=== PATIENT | female | born 1990 | race Two or more races ===

== ENCOUNTER 2024-05-16 06:41 | Outpatient (REF) | payer OTHER, SELFPAY ==
--- NOTE | ~2024-05-16 | US_ITS ---
EXAMINATION: US RETROPERITONEAL COMPLETE (RENAL) CLINICAL INFORMATION: Elevated creatinine.. COMPARISON: None available. TECHNIQUE: Real-time imaging of the kidneys and bladder. FINDINGS: RIGHT KIDNEY: 10 x 5 x 5 cm (SAG x AP x TRV). The kidney is normal in size, contour, and echogenicity. Renal cortical thickness is normal. No calculi or focal parenchymal lesions. No hydronephrosis. There is a well-defined 2.4 cm exophytic anechoic lesion in the upper pole without septations or nodular components. There is flow on color Doppler interrogation of the renal hilum. LEFT KIDNEY: 10 x 5 x 6 cm (SAG x AP x TRV). The kidney is normal in size, contour, and echogenicity. Renal cortical thickness is normal. No calculi or focal parenchymal lesions. No hydronephrosis. BLADDER: Fluid-filled Bilateral ureteral jets are demonstrated. Prevoid bladder volume is 332 mL. Postvoid bladder volume is 25 mL. US/US retroperitoneal comp IMPRESSION: 25 cc of residual urine in a post void image. No hydronephrosis. 2.4 cm simple cyst, right kidney.. Electronically signed by: Soy Angeles MD 05/16/2024 02:34 PM EST
== END 2024-05-16 06:42 | disposition home or self-care (01) ==
LOC: HO.UMASIMG 06:41
PROVIDERS: Visit Provider Family Medicine
DX: R94.4 Abnormal results of kidney function studies (principal)
CPT/HCPCS: 76770

== ENCOUNTER → 2024-05-16 13:58 | Outpatient (BNV) | payer OTHER, SELFPAY | PROVIDERS: Visit Provider Radiology Diagnostic Radiology | DX: N28.1 Cyst of kidney, acquired (principal); N39.43 Post-void dribbling | CPT/HCPCS: 76770 ==

== ENCOUNTER 2024-08-28 14:36 | Outpatient (REF) | payer OTHER, SELFPAY ==
--- NOTE | ~2024-08-28 | US_ITS ---
EXAMINATION: US KIDNEY BILATERAL HISTORY: cyst of kidney TECHNIQUE: Real-time grayscale ultrasound imaging of the kidneys was performed and images were reviewed. COMPARISON: Comparison is made with the prior examination dated 05/16/2024. FINDINGS: Right kidney: The right kidney measures 9.4 x 4.3 x 5.3 cm. Renal parenchymal echotexture and thickness are normal. Again seen is an upper pole cyst measuring 2.3 x 1.9 x 2.2 cm. There is no hydronephrosis or renal calculi. Left Kidney: The left kidney measures 10.0 x 4.7 x 5.4 cm. Renal parenchymal echotexture and thickness are normal. There are no masses. There is no hydronephrosis or renal calculi. US/US renal BI IMPRESSION: Stable 2.3 x 1.9 x 2.2 cm right upper pole renal cyst. Otherwise unremarkable renal ultrasound. Electronically signed by: Haris Gil MD 08/29/2024 07:38 AM EDT
--- OUTSIDE RECORDS SUMMARY | 2024-08-28 15:52 | XMS_ITS | Encounter Summary ---
Author Organization [facility] Address [address] [facility] [address] [place] [address] Phone Care Team Providers Care Inventory Associate Name Role Phone Darline Carrera MD Primary Care Provide r Encounter Details Date Type Department Care Team (Late st Contact Info) Description 03/10/2022 Procedure Pass Non-Invasive Cardiology [address] [place] [address] Social History Tobacco Use Types Packs/Day Years Used Date Smoking Tobacco: Never Alcohol Use Standard Drinks/Week Comments Yes 1 (1 standard drink = 0.6 oz pur e alcohol) Sex and Gender Information Value Date Recorded Sex Assigned at Not on file Gender Identity Not on file Sexual Orientation Not on file documented as of this encounter Plan of Treatment Not on file documented as of this encounter Visit Diagnoses Not on filedocumented in this encounter Additional Health Concerns Assessment Noted Time PHQ-2 Depression Total Score: 0 11/12/19 17 8:41 AM EDT documented as of this encounter Care Teams Inventory Associate Relationship Specialty Start Date End Date Darline Carrera MD 2 [facility] [place] [address] [email or web address] PCP - General Internal Medicine 06/08/18 documented as of this encounter Additional Source Comments The information contained in this document represents components of the legal health record. It is not the complete legal health record.[facility]
--- OUTSIDE RECORDS SUMMARY | 2024-08-28 15:52 | XMS_ITS | Encounter Summary ---
Author Organization [facility] Address [address] [place] [address] Phone Care Team Providers Care Senior Construction Project Manager Name Role Phone Gwendolyn Perez DO Primary Care Provider [phone] Encounter Details Date Type Department Care Team (Late st Contact Info) Description 05/31/2024 Documentation Only [facility] [address] [place] [address] Natanael HealyORICK, [place] [address] [place] [address] Social History Tobacco Use Types Packs/Day Years Used Date Smoking Tobacco: Never Assessed Comments Unknown Sex and Gender Information Value Date Recorded Sex Assigned at Not on file Legal Sex Female 11:14 AM EST Gender Identity Not on file Sexual Orientation Not on file documented as of this encounter Plan of Treatment Upcoming Encounters Date Type Department Care Team (Late st Contact Info) Description 07/14/2025 1:45 PM EDT Office Visit [facility] [place] [address] [place] [phone] Ozzy Valles MD [address] [place] [address] [place] [address] documented as of this encounter Visit Diagnoses Not on filedocumented in this encounter Care Teams Senior Construction Project Manager Relationship Specialty Start Date End Date Gwendolyn Perez DO [address] [place] [phone] PCP - General Family Medicine 05/29/24 documented as of this encounter
--- OUTSIDE RECORDS SUMMARY | 2024-08-28 15:52 | XMS_ITS | Encounter Summary ---
Author Organization [facility] Address [address] [place] [address] Phone Care Team Providers Care Educational Programming Director Name Role Phone Gwendolyn Perez DO Primary Care Provider [phone] Encounter Details Date Type Department Care Team (Late st Contact Info) Description 05/29/2024 Documentation Only [facility] [address] [place] [address] Natanael [place], [place] [address] [place] [address] Social History Tobacco Use Types [...] Visit [facility] [place] [address] Milly [address] [place] [phone] Ozzy Valles MD [address] [place] [address] [place] [address] documented as of this encounter Visit Diagnoses Not on filedocumented in this encounter Care Teams Educational Programming Director Relationship Specialty Start Date End Date Gwendolyn Perez DO [address] [place] [phone] PCP - General Family Medicine 05/29/24 documented as of this encounter
--- OUTSIDE RECORDS SUMMARY | 2024-08-28 15:52 | XMS_ITS | Encounter Summary ---
Author Organization [facility] Address [address] [facility] [address] [place] [phone] Phone Care Team Providers Care Office Runner Name Role Phone Darline Carrera MD Primary Care Provide r Encounter Details Date Type Department Care Team (Late st Contact Info) Description 03/10/2022 Transcribe Orders Virtual Department [address] [place] [address] Cheyenne Claudio MD [address] [place] [phone] [email or web address] Palpitations (Primary Dx) Social History Tobacco Use Types Packs/Day Years [...] on file documented as of this encounter Results * Holter Monitor 24 Hours (04/06/2022 4:48 PM EST) Total Beats 98,270 [facility] Ventricular Ectopy Total Beats 6 [facility] Ventricular Ectopy Single Beats 6 [facility] Ventricular Pair 0 [facility] Ventricular Runs 0 [facility] Supraventricular Total Beats 1,643 [facility] Supraventricular Ectopic Single Beats 1,643 [facility] Supraventricular Runs 0 [facility] Mean Heart Rate 71 BPM [facility] Maximum Heart Rate 115 BPM P [facility] Minimum Heart Rate 51 BPM P [facility] Longest RR 1.531 S [facility] Anatomical Region Laterality Modality Heart Other 04/04/2022 3:10 PM EST 04/06/2022 4:48 PM EST Narrative 04/07/2022 1:09 PM EST Holter monitor report Indication palpitations Findings: The underlying rhythm is sinus rhythm with an average heart rate 71, minimum heart rate 51, maximal heart rate 115. There are very rare isolated PVCs. There are rare isolated premature atrial contractions. Palpitations really did not correlate with any particular abnormality. Conclusion: Normal Holter monitor with some rare premature atrial contractions. Symptoms did not clearly correlate with any particular abnormality. Holter Monitor Main Form Hookup date: 04/04/2022 End date: 04/05/2022 Scan date: 04/06/2022 Analysis time: 24 hr Mean HR: 71 bpm Max HR: at 11:05 EST on 04/05/2022 115 bpm Min HR: at 08:25 EST on 04/05/2022 51 bpm Ventricular ectopic beats - total: 6 Ventricular ectopic beats - singles: 6 Ventricular ectopic beats - pairs: 0 Ventricular ectopic beats - runs: 0 Supraventricular ectopic beats - total: 1643 Supraventricular ectopic beats - singles: 1643 Supraventricular ectopic beats - runs: 0 Longest R-R interval at 05:55 EST on .531 sec Cheyenne Claudio MD [facility] documented in this encounter Visit Diagnoses Diagnosis Palpitations- Primary Palpitations documented in this encounter Additional Health Concerns Assessment Noted Time PHQ-2 Depression Total Score: 0 11/12/19 17 8:41 AM EDT documented as of this encounter Care Teams Office Runner Relationship Specialty Start Date End Date Darline Carrera MD 2 [facility] [place] [address] [email or web address] PCP - General Internal Medicine 06/08/18 documented as of this encounter Additional Source Comments The information contained in this document represents components of the legal health record. It is not the complete legal health record.[facility]
--- OUTSIDE RECORDS SUMMARY | 2024-08-28 15:52 | XMS_ITS | Clinical Summary ---
Author Organization [facility] r Address 1 [place] [address] Phone Care Team Providers Care Metal Control Coordinator Name Role Phone Unavailable Primary Care Provider Unavailabl e Allergies No known active allergies Social History Tobacco Use Types Packs/Day Years Used Date Smoking Tobacco: Never Housing Answer Date Recorded What is your living situation today? I have a [facility] place to live 10/07/2021 Comments Unknown Sex and Gender Information Value Date Recorded Sex Assigned at Not on file Legal Sex Female 2:29 PM EDT Gender Identity Not on file Sexual Orientation Not on file Last Filed Vital Signs Vital Sign Reading Time Taken Comments Blood Pressure 111/76 10/07/2021 7:16 PM EDT Pulse 96 10/07/2021 7:16 PM EDT Temperature 37.2 ??C (99 ??F) 10/07/2021 2:54 PM EDT Respiratory Rate 18 10/07/2021 7:16 PM EDT Oxygen Saturation 99% 10/07/2021 7:16 PM EDT Inhaled Oxygen Concentration - - Weight 49.9 kg (110 lb) 10/07/2021 2:54 PM EDT Height 154.9 cm (5' 1 ) 10/07/2021 2:54 PM EDT Body Mass Index 20.78 10/07/2021 2:54 PM EDT Plan of Treatment Health Maintenance Due Date Last Done Comments HIV Lifetime Screening 1992 Hepatitis B sAg Lifetime Screening 1992 Hepatitis C Antibody Lifetim e Screening 1992 THRIVE SCREENING 1992 Oral Health Screen 03/29/1993 HEIP Disability Screen 1997 BEHAVIORAL HEALTH SCREEN 2004 Psych Substance Use Screen 2004 Relationship Safety Screening 10/28/2007 DTAP/TDAP VACCINE (1 - Tdap) 10/28/2011 Cervical Cancer Screening 2013 Colposcopy 2013 PAP SMEAR 2013 Pap + HPV 2013 COVID-19 Vaccine ( - 2023-2 5 season) 2023 INFLUENZA VACCINE (#1) 2023 Zoster Vaccine (1 of 2) 2042 HPV VACCINES Aged Out No longer eligi ble based on patient's age to complete this topic IPV VACCINES Aged Out No longer eligi ble based on patient's age to complete this topic MENINGOCOCCAL B Aged Out No longer el igible based on patient's age to complete this topic Pneumonia Vaccine 0-49 Years Aged Out No longer eligible based on patient's age to complete this topic ROTAVIRUS VACCINES Aged Out No longer eligible based on patient's age to complete this topic
--- OUTSIDE RECORDS SUMMARY | 2024-08-28 15:52 | XMS_ITS | Clinical Summary ---
Author Organization [facility] Address [address] [id number] Phone Care Team Providers Care Miter Sawyer Name Role Phone Darline Carrera MD Primary Care Provide r Allergies No known active allergies Medications Medication Sig Dispensed Refills Start Date End Date Status cholecalciferol (VITAMIN D3) 1,000 unit tabletIndications:R outine general medical examination at a health care facility Take 1 tablet (1,000 Units total) by mouth daily. 90 tablet 3 11/11/2016 Active Additional Information Patient not taking.Reported on 06/08/2018 norethindrone-ethin yl estradiol (MICROGESTIN 05/20) 1-0.02 mg per tabletIndications:I rregular menses Take 1 tablet by mouth daily. 1 packet 11 12/28/2016 Active Additional Information Patient not taking.Reported on 06/08/2018 polyethylene glycol (MIRALAX) 17 gram/dose powder Take 17 g by mouth daily. 1 Bottle 01/16/2017 Active Active Problems Problem Noted Date Diagnosed Date Menstrual periods irregular 11/11/2016 Overview (12/28/2016): Always irregular, exc when on OCPs. May be anovulatory, although does not meet criteria for PCOS (no clinical hyperandrog, no polycystic ovaries on US, testost/DHEAS normal). TSH and PRL wnl. Pt not desiring fertility at this time. A1C/lipids wnl. - TVUS does show endometrial polyp, s/p resection with EXPERIENCE SPECIALIST - awaiting path - OCPs thereafter to regulate menses Routine general medical exam ination at a health care facility 11/11/2016 Overview (11/15/2016): Pap: 11/2015, normal in [place] Mammo/colo/dexa: no FHx, not yet Lipids: CHL 167, HDL 61, LDL 82, TG 120 (10/2016) A1C: 5.4% (10/2016) Last physical: done 11/11/16 HIV, GC/CT: neg 10/2016 Vaccines: reports UTD for school, will bring in record Weight: Body mass index is 24.38 kg/(m^2). Diet/ex. Calcium/Vit D: advised daily 1000 IU vitamin D3 BC method: not needed at this time, female partner Immunizations Name Administration Dates Next Due HPV9 11/11/2016 Family History Medical History Relation Comments Hyperlipidemia Father Lung cancer Maternal Grandfather smoker Diabetes Maternal Grandmother Heart attack Maternal Grandmother Heart disease Mother Heart attack Paternal Grandmother Breast cancer Neg Hx Colon cancer Neg Hx Relation Status Comments Father Maternal Grandfather Maternal Grandmother Mother Paternal Grandmother Social History Tobacco Use Types Packs/Day Years Used Date Smoking Tobacco: Never Alcohol Use Standard Drinks/Week Comments Yes 1 (1 standard drink = 0.6 oz pur e alcohol) Education Answer Date Recorded Are you interested in more education? Not on marshall e 08/26/2022 Are you concerned about learning? Not on file 08/26/2022 No 08/26/2022 No 08/26/2022 Digital Access Answer Date Recorded No 09/26/2022 No 09/26/2022 No 09/26/2022 Reliable internet access at home? Not on file 09/26/2022 Device with a working camera? Not on file Sex and Gender Information Value Date Recorded Sex Assigned at Not on file Gender Identity Not on file Sexual Orientation Not on file Last Filed Vital Signs Vital Sign Reading Time Taken Comments Blood Pressure 120/67 06/05/2019 12:54 AM EST Pulse 76 06/05/2019 12:54 AM EST Temperature 36.6 ??C (97.8 ??F) 06/04/2019 8:20 PM ES T Respiratory Rate 16 06/05/2019 12:54 AM EST Oxygen Saturation 99% 06/05/2019 12:54 AM EST Inhaled Oxygen Concentration - - Weight 56.7 kg (125 lb) 06/05/2019 12:54 AM EST Height 170.2 cm (5' 7 ) 06/05/2019 12:54 AM EST Body Mass Index 19.58 06/05/2019 12:54 AM EST Plan of Treatment Health Maintenance Due Date Last Done Comments DEPRESSION SCREENING 11/11/2017 11/11/2016 SMOKING STATUS SCREENING (On ce After 26 Yrs) 2018 PAP SMEAR 12/29/2019 12/28/2016, 12/28/2016 INFLUENZA VACCINE (#1) 2023 COVID-19 VACCINE (2023-2 5 season) 2023 09/13/2020, 08/16/2020 Adult Td,Tdap Booster 02/02/2030 02/03/2020 , 08/15/2018 HEPATITIS C SCREENING Completed 01/04/2017 HIV ONE-TIME SCREENING (18-6 5 YEARS) Completed 01/04/2017 HEPATITIS A VACCINES Aged Out No long er eligible based on patient's age to complete this topic HIB VACCINES Aged Out No longer eligi ble based on patient's age to complete this topic MENINGOCOCCAL VACCINES (ACWY) Aged Out No longer eligible based on patient's age to complete this topic PNEUMOCOCCAL VACCINES (0-49 years) Aged Out No longer eligible b ased on patient's age to complete this topic Medical Devices Not on file Procedures Procedure Name Priority Date/Time Associated Diagnosis Comments HEPATITIS C ANTIBODY, QUALITATIVE Routine 01/04/2017 10:03 AM EDT PAP TEST Routine 12/28/2016 12:00 AM EDT from Last 3 Months or Most Recently Relevant to Health Maintenance Results * Hepatitis C antibody, qualitative (01/04/2017 10:03 AM EDT) HCV ANTIBODY Negative Negative [facility] 01/04/2017 10:0 3 AM EDT 01/04/2017 12:50 PM EDT Fabian Schaffer DO LAB [place] [address], [facility] [phone] * Pap Smear (12/28/2016 12:00 AM EDT) 12/28/2016 12/29/2016 Narrative [facility] - 01/03/2017 4:14 PM EDT CASE: [id number] PATIENT: TAWANNA MCDERMOTT [facility] Department of Pathology [address] [place] [address] CLIA License No.: [id number] Pickup Driver: Dr. Jason Shafer Physician: REZA SAMUEL M.D. Procedure Date: 12/28/2016 Route Delivery Supervisor: ?? Roldan ??White, CT (ASCP) ? THINPREP PAP TEST, CERVICAL FINAL CYTOLOGIC INTERPRETATION SPECIMEN ADEQUACY: Satisfactory for evaluation; transformation zone present. INTERPRETATION: NEGATIVE FOR INTRAEPITHELIAL LESION OR MALIGNANCY. COMMENTS: Predominance of coccobacilli suggestive of bacterial vaginosis. AUTOMATED REVIEW: This specimen was prescreened using the ThinPrep Imaging System. CLINICAL DATA LMP: 11/27/16 TOTAL SLIDES 1 PROCEDURES Screening or High Risk ThinPrep with Auto Pre-Screen - [facility] ? 1 Final Diagnosis by ??Roldan Payton CT (ASCP), ??Electronically signed ??on Tuesday January 03, 2017 at 03:53:02PM Reza Samuel MD CYTOLOGY ORDERAB LES [facility] [address] [place] [address] from Last 3 Months or Most Recently Relevant to Health Maintenance Care Teams Miter Sawyer Relationship Specialty Start Date End Date Darline Carrera MD [address] [place] [address] [email or web address] PCP - General Internal Medicine 06/08/18 Additional Source Comments The information contained in this document represents components of the legal health record. It is not the complete legal health record.[facility]
--- OUTSIDE RECORDS SUMMARY | 2024-08-28 15:52 | XMS_ITS | Referral Summary ---
Author Organization [facility] r Address [address] [place] [address] Phone Care Team Providers Care Combination Welder Apprentice Name Role Phone Unavailable Primary Care Provider Unavailabl e Allergies No known active allergies Social History Tobacco Use Types Packs/Day Years Used Date Smoking Tobacco: Never Housing Answer Date Recorded What is your living situation today? I have a [facility] place to live 10/07/2021 Comments Unknown Sex [...] 10/07/2021 2:54 PM EDT Plan of Treatment Not on file
--- OUTSIDE RECORDS SUMMARY | 2024-08-28 15:52 | XMS_ITS | Clinical Summary ---
Author Organization [facility] Address [address] [place] [address] Phone Care Team Providers Care Process Engineer Name Role Phone Gwendolyn Perez DO Primary Care Provider [phone] Allergies No known active allergies Medications Levonorgestrel (Mirena, 52 MG,) 20 MCG/DAY intrauterine device by Intrauterine route Active Multiple Vitamin (multivitamin) capsule Take 1 capsule by mouth 1 (one) time each day Active UNABLE TO FIND Med Name: MAGNESIUM AMINO ACID CHELATE 100 MG Active UNABLE TO FIND Med Name: TURMERIC-TURMERI C ROOT EXTRACT 450-50 MG CAPSULE Active Active Problems Problem Noted Date Diagnosed Date Chronic kidney disease Serum creatinine above reference range Encounters Date Type Department Care Team Description 07/19/2024 1:30 PM EDT Office Visit [facility] [address] [place] [address] Ozzy Valles MD Cyst of kidney (Primary Dx) 05/31/2024 Documentation Only [facility] [address] [place] [address] Natanael Healy [place] from Last 3 Months Immunizations Immunization Administration Dates Next Due Tdap 08/15/2018 Family History Medical History Relation Comments Hyperlipidemia Father Hypertension Father Kidney failure Father's Sister recieved a trans plant Heart disease Mother Hyperlipidemia Mother Hypertension Mother Relation Status Comments Father Father's Sister Mother Social History Tobacco Use Types Packs/Day Years Used Date Smoking Tobacco: Never Assessed Comments Unknown Sex and Gender Information Value Date Recorded Sex Assigned at Not on file Legal Sex Female 11:14 AM EST Gender Identity Not on file Sexual Orientation Not on file Plan of Treatment Upcoming Encounters Date Type Department Care Team (Late st Contact Info) Description 07/14/2025 1:45 PM EDT Office Visit [facility] [place] - [address] [place] [phone] Ozzy Valles MD [address] [place] [phone] Health Maintenance Due Date Last Done Comments Hepatitis B Vaccine (1 of 3 - 19+ 3-dose series) 10/27 Pneumococcal Vaccine: Peds ( 0 to 5 Years) and At-Risk Patients (6 to 49 Years) (1 of 2 - PCV) 10/28/2011 Influenza Vaccine (Season Ended) 2024 Insurance [employer] Care Teams Process Engineer Relationship Specialty Start Date End Date Gwendolyn Perez DO [address] [place] [phone] PCP - General Family Medicine 05/29/24
--- OUTSIDE RECORDS SUMMARY | 2024-08-28 15:52 | XMS_ITS | Encounter Summary ---
Author Organization [facility] Address [address] [place] [address] [address] Care Team Providers Care Steam Bone Press Tender Name Role Phone Darline Carrera Md Primary Care Provider [phone] Darline Carrera Md Unavailable [phone] Nadir Anderson Unavailable Reason for Visit * Reason Comments re: [email or web address] Encounter Details Date Type Department Care Team (Late st Contact Info) Description 02/28/2019 Telephone [facility] [address] [place] [phone] Darline Carrera MD [address] [place] [address] 0re: [email or web address] Social History Tobacco Use Types Packs/Day Years Used Date Smoking Tobacco: Never Smokeless Tobacco: Never Alcohol Use Standard Drinks/Week Comments Yes 1 (1 standard drink = 0.6 oz pur e alcohol) Comments No Sex and Gender Information Value Date Recorded Sex Assigned at Not on file Legal Sex Female 9:55 PM EST Gender Identity Not on file Sexual Orientation Not on file Occupation Industry Job Start Date Job End Date Teacher Not on file Not on file Not on file documented as of this encounter Miscellaneous Notes * Telephone Encounter - Mely Myrick - 02/28/2019 3:57 PM EDT Patient called and scheduled appt. For 2018 1530. documented in this encounter Plan of Treatment Not on file documented as of this encounter Visit Diagnoses Not on filedocumented in this encounter Care Teams Steam Bone Press Tender Relationship Specialty Start Date End Date Darline Carrera MD [address] [place] [address] PCP - General 04/10/18 Darline Carrera MD [address] [place] [address] PCP - Payer 05/28/18 06/02/19 JustinNadir cobos [address] [place] [phone] PCP - Payer 06/03/19 documented as of this encounter
--- OUTSIDE RECORDS SUMMARY | 2024-08-28 15:52 | XMS_ITS | Clinical Summary ---
Author Organization [facility] Address [address] [place] [address] Care Team Providers Care Surgery Manager Name Role Phone Unavailable Primary Care Provider Unavailabl e Source Comments PLEASE NOTE, if this patient is a minor, it may be UNLAWFUL to discuss sensitive information that is contained in these records (such as FAMILY PLANNING, MENTAL HEALTH or SUBSTANCE ABUSE) with the minor patient's parent or other person without the patient's specific authorization.[facility] Allergies No known active allergies Medications norethindrone-et hinyl estradiol (MICROGESTIN 05/20) 1-20 mg-mcg per tabletIndication s:Laboratory examination Take by mouth 7 Active ibuprofen (ADVIL,MOTRIN) 800 mg tabletIndication s:Laboratory examination Take 1 Tab by mouth 3 (three) times daily as needed for pain 30 Tab 7 Active eucerin cream Apply topically as needed for dry skin 120 g 2 7 Active dextran 70-hypromellose (TEARS RENEWED) ophthalmic solutionIndicati ons: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 ER visit for menorrhagia, had U/S that showed polyp. H/H 13.1/43.5. Asked staff to contact pt to offer f/u at [facility]. Irregular menses 03/29/2017 Assessment & Plan (03/29/2017 5:11 PM EST): Is followed by specialist. Stopped ocp Still having sporatic bleeding Pt to follow-up with specialist and discussed the importance Pt voices understanding Last pap in 11/2016 by specialist Fatigue 03/29/2017 Assessment & Plan (03/29/2017 5:12 PM EST): Labs ordered Pt to follow-up after labs for review and PE; sooner PRN Anxiety 03/29/2017 Assessment & Plan (03/29/2017 5:14 PM EST): Discussed today Discussed labs-thyroid and anemia Discussed meds and therapy Declined meds Will consider therapy Wants to wait for labs until pursues therapy Confirmed no thoughts of harm to self or others Immunizations Immunization Administration Dates Next Due HPV 9 (Gardasil) 11/11/2016 Family History Medical History Relation Name Comments Blindness Neg Glaucoma Neg Macular degeneration Neg Social History Tobacco Use Types Packs/Day Years Used Date Smoking Tobacco: Never Smokeless Tobacco: Never Alcohol Use Standard Drinks/Week Comments Yes 0 (1 standard drink = 0.6 oz pur e alcohol) occ Social Connections Answer Date Recorded Social Connections and Isolation 0 12/23/2018 Financial Resource Strain Answer Date R ecorded Financial Resource Strain 0 2018 Stress Answer Date Recorded Stress 0 12/23/2018 Physical Activity Answer Date Recorded Physical Activity 0 12/23/2018 Food Insecurity Answer Date Recorded Food 0 12/23/2018 Transportation Needs Answer Date Record ed Transportation 0 12/23/2018 Housing Stability Answer Date Recorded Housing 0 12/23/2018 Safety and Environment Answer Date Camron rded Safety 0 12/23/2018 Utilities Answer Date Recorded Utilities 0 12/23/2018 Employment Answer Date Recorded Employment 0 12/23/2018 Comments No Sex and Gender Information Value Date Recorded Sex Assigned at Female 10/19/2016 9:40 AM PDT Legal Sex Female 8:17 AM PDT Gender Identity Female 10/19/2016 9:40 AM PDT Sexual Orientation Lesbian or Neff 10/19/2016 9: 40 AM PDT 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
--- OUTSIDE RECORDS SUMMARY | 2024-08-28 15:52 | XMS_ITS | Encounter Summary ---
Author Organization [facility] Address [address] [place] [phone] Phone Care Team Providers Care Risk Compliance Analyst Name Role Phone Darline Carrera MD Primary Care Provide r Encounter Details Date Type Department Care Team (Late st Contact Info) Description 03/29/2022 Transcribe Orders Virtual Department [address] [place] [address] Tiffanie Langford CNP [address] [place] [phone] [email or web address] Irregular menstruation, unspecified (Primary Dx) Social History Tobacco Use Types [...] documented as of this encounter Results * US PELVIS TRANSABDOMINAL PLUS TRANSVAGINAL (04/22/2022 3:02 PM EST) Anatomical Region Laterality Modality Pelvis, Uterus/Adnexa Ultrasound 04/26/2022 2:14 PM EST Impressions 04/26/2022 3:08 PM EST No abnormalities on pelvic ultrasound. IUD appears adequately positioned within the endometrial canal. Narrative 04/26/2022 3:08 PM EST US PELVIS TRANSABDOMINAL PLUS TRANSVAGINAL HISTORY: Abnormal vaginal bleeding. TECHNIQUE: Pelvic Ultrasound Transabdominal performed for global imaging of the pelvis. Pelvic Ultrasound Transvaginal performed for detailed imaging of the endometrium and/or adnexa. COMPARISON: Pelvic ultrasound 06/05/2019. FINDINGS: Uterus: Size: ??6.8 cm x 3.9 cm x 3.5 cm cm. Orientation: Anteverted. ??Myometrium: Normal. Endometrium: IUD remains present within the endometrial canal appears adequately positioned. Endometrial stripe normal measuring 7 mm in thickness. Right adnexa: Ovary: The ovary is normal in size and echogenicity measuring 4.4 cm x 2.9 cm x 2.4 cm. Normal arterial and venous blood flow demonstrated within the ovary. Left adnexa: Ovary: The ovary is normal in size and echogenicity measuring 3.8 cm x 2.6 cm x 2.2 cm. Normal arterial and venous blood flow demonstrated within the ovary. Free fluid: No significant free fluid. Procedure Note Raymond De Los Santos MD - 04/26/2022 US PELVIS TRANSABDOMINAL PLUS TRANSVAGINAL HISTORY: Abnormal vaginal bleeding. TECHNIQUE: Pelvic Ultrasound Transabdominal performed for global imagingof the pelvis. Pelvic Ultrasound Transvaginal performed for detailedimaging of the endometrium and/or adnexa. COMPARISON: Pelvic ultrasound 06/05/2019. FINDINGS: Uterus: Size: 6.8 cm x 3.9 cm x 3.5 cm cm. Orientation: Anteverted. Myometrium: Normal. Endometrium: IUD remains present within the endometrial canal appearsadequately positioned. Endometrial stripe normal measuring 7 mm inthickness. Right adnexa: Ovary: The ovary is normal in size and echogenicity measuring 4.4 cm x 2.9 cm x2.4 cm. Normal arterial and venous blood flow demonstrated within the ovary. Left adnexa: Ovary: The ovary is normal in size and echogenicity measuring 3.8 cm x 2.6 cm x2.2 cm. Normal arterial and venous blood flow demonstrated within the ovary. Free fluid: No significant free fluid. IMPRESSION: No abnormalities on pelvic ultrasound. IUD appears adequately positionedwithin the endometrial canal. Tiffanie Langford ASSOCIATE PROFESSOR OF COMMUNICATION IMG US PELVIS documented in this encounter Visit Diagnoses Diagnosis Irregular menstruation, unspecified- Primary Irregular menstruation, unspecified documented in this encounter Additional Health Concerns Assessment Noted Time PHQ-2 Depression Total Score: 0 11/12/19 17 8:41 AM EDT documented as of this encounter Care Teams Risk Compliance Analyst Relationship Specialty Start Date End Date Darline Carrera MD [address] [facility] [address] [email or web address] PCP - General Internal Medicine 06/08/18 documented as of this encounter Additional Source Comments The information contained in this document represents components of the legal health record. It is not the complete legal health record.[facility]
--- OUTSIDE RECORDS SUMMARY | 2024-08-28 15:52 | XMS_ITS | Clinical Summary ---
Author Organization [facility] Address [address] [facility] [address] [place] [id number] Care Team Providers Care Advisor To Command In Combat Name Role Phone Darline Carrera Md Primary Care Provider + [phone] Nadir Anderson Unavailable Allergies No known active allergies Medications No known medications Active Problems No known active problems Resolved Problems Problem Noted Date Diagnosed Date Resolved Date Irregular menses 03/29/2017 11/26/2018 Overview (05/29/2018): Last Assessment & Plan: Is followed by specialist. Stopped ocp Still having sporatic bleeding Pt to follow-up with specialist and discussed the importance Pt voices understanding Last pap in 11/2016 by specialist Immunizations Name Administration Dates Next Due HPV9 Vaccine (Gardasil9) 11/11/2016 TdaP 08/15/2018 Surgical History Surgery Date Site/Laterality Comments endometrial polyp removal 11/29/2016 - 12/29/2016 Family History Medical History Relation Comments Hyperlipidemia Father Cancer Maternal Grandfather Cancer - lung Maternal Grandfather Diabetes - type II Maternal Grandmother Hypertension Maternal Grandmother Stroke Maternal Grandmother Hypertension Mother Stroke Paternal Grandmother Cancer - breast Neg HX Cancer - colon Neg HX Cancer - ovarian Neg HX Cancer - uterine Neg HX Relation Status Comments Father Maternal Grandfather Maternal Grandmother Mother Paternal Grandmother Social History Tobacco Use Types Packs/Day Years Used Date Smoking Tobacco: Never Smokeless Tobacco: Never Tobacco Cessation:Counseling Given: No Alcohol Use Standard Drinks/Week Comments Yes 1 [...] file Not on file Not on file Obstetrics History Para Term AB IAB SAB Ectopic Multiple Livin g Live Births 0 0 0 0 0 0 0 0 0 0 0 Comments Menarche: Cycle: q30-35 days x days Severity/symptoms: Intermenstrual bleeding: yes Sexually active: Not currently Partners: female and male in past Barrier protection: no History of STIs: no History of abnormal paps: no, last 10/29/18 neg/HPV neg Sexual function: no concerns Last Filed Vital Signs Vital Sign Reading Time Taken Comments Blood Pressure 114/64 01/17/2019 3:24 PM EDT Pulse 79 01/17/2019 3:24 PM EDT Temperature 36 ??C (96.8 ??F) 01/17/2019 3:24 PM EDT Respiratory Rate - - Oxygen Saturation 100% 08/15/2018 11:32 AM EDT Inhaled Oxygen Concentration - - Weight 59.9 kg (132 lb) 01/17/2019 3:24 PM EDT Height 160 cm (5' 3 ) 08/15/2018 11:32 AM EDT Body Mass Index 23.38 08/15/2018 11:32 AM EDT Plan of Treatment Health Maintenance Due Date Last Done Comments HEP B INITIAL SCREENING 2010 RUBELLA 2010 HEPATITIS B VACCINE (1 of 3 - 19+ 3-dose series) 10/28/2011 LIPID SCREENING 2012 PERIODIC HEALTH REVIEW 2014 PAP: UPDATE W EDIT MODIFIERS 10/30/2018 10/29/2018, 12/28/2016 HEP C SCREENING 10/28/2023 2018 COVID-19 Vaccine (3 - 2023-2 5 season) 2023 09/13/2020, 08/16/2020 FLU SEASONAL (#1) 12/31/2023 DTAP/TDAP/TD VACCINE (2 - Td or Tdap) 08/15/2028 08/15/2018 HIV SCREENING Completed 10/24/2018 HAEMOPHILUS INFLUENZA VACCINE Aged Out No longer eligible based on patient's age to complete this topic HEPATITIS A VACCINE Aged Out No longe r eligible based on patient's age to complete this topic PNEUMOCOCCAL VACCINE(S) Aged Out No l onger eligible based on patient's age to complete this topic POLIO VACCINE Aged Out No longer elig ible based on patient's age to complete this topic RSV Vaccine //toddler Aged Out No longer eligible based on patient's age to complete this topic Procedures Procedure Name Priority Date/Time Associated Diagnosis Comments GYNECOLOGIC CYTOLOGY PAP SMEAR 10/29/2018 HEPATITIS C ANTIBODY 2018 HIV 1 & 2 ANTIBODY / ANTIGEN COMBINED SCREEN 4TH GENERATION 10/24/2018 from Last 3 Months or Most Recently Relevant to Health Maintenance Results * GYNECOLOGIC CYTOLOGY PAP SMEAR (10/29/2018) 10/29/2018 us Outside Provider GENERAL LAB Final Result * HEPATITIS C ANTIBODY (2018) 2018 us Outside Provider GENERAL LAB Final Result * HIV 1 & 2 ANTIBODY / ANTIGEN COMBINED SCREEN 4TH GENERATION (10/24/2018) 10/24/2018 us Outside Provider GENERAL LAB Final Result from Last 3 Months or Most Recently Relevant to Health Maintenance Care Teams Advisor To Command In Combat Relationship Specialty Start Date End Date Darline Carrera MD [address] [place] [id number] PCP - General 04/10/18 Nadir Anderson [address] [place] [address] PCP - Payer 06/03/19
== END 2024-08-28 14:37 | disposition home or self-care (01) ==
LOC: HO.US 14:36
PROVIDERS: PCP Family Medicine; Visit Provider Internal Medicine Nephrology
DX: N28.1 Cyst of kidney, acquired (principal)
CPT/HCPCS: 76775

== ENCOUNTER → 2024-08-28 14:54 | Outpatient (BNV) | payer OTHER, SELFPAY | PROVIDERS: PCP Family Medicine; Visit Provider Radiology Diagnostic Radiology | DX: N28.1 Cyst of kidney, acquired (principal) | CPT/HCPCS: 76775 ==